=== PATIENT | female | born 1960 | race Caucasian/White ===

== ENCOUNTER 2020-12-26 02:23 | Outpatient (CLI) | payer BC, MEDICAID, SELFPAY ==
--- NOTE | 2020-12-26 15:35 | DI.MRI_ITS ---
Exam(s) MR LOWER JOINT RT WO EXAM: MR LOWER JOINT RT WO CLINICAL HISTORY: PAIN, INJURY,RT ACHILLES TENDINITIS, M76.61,S86.001A TECHNIQUE: Multiplanar multisequence MRI of the knee was performed. COMPARISON: CR XR RIGHT ANKLE COMPLETE from 05/21/2020 outside institution. FINDINGS: SKIN/SUBCUTANEOUS TISSUES: There is no evidence of skin ulcer nor subcutaneous tract. MARROW:There is no evidence of fracture or bone contusion. No marrow signal to suggest osteomyelitis . There are no ominous osseous lesions. There is prominent inferior calcaneal spur. There is some bone edema in the posterior superior calca neus. Also some increased signal on the inner aspect of the lateral malleolus. There is no evidence of osseous tarsal coalition. ARTICULATIONS: No joint effusions evident. No para-articular ganglions. No obvious degenerative changes in the ankle joint. Talar dome appears unremarkable. No osteochondr al defects. The subtalar joint appears unremarkable as does the sustentacular talus. Some degenerat teri changes noted in the calcaneocuboid joint including small subarticular cyst on the calcaneal side of this joint with mild surrounding intraosseous edema. No abnormal signal in the cuboid. Talonavi cular joint appears unremarkable. Main Lisfranc ligament appears intact (in the distal aspect of the field of view of this ankle study). No evidence of significant pes planus nor midfoot collapse. SINUS TARSI: Preserved fat signal. No evidence of sinus tarsi ganglion cyst Intact interosseous ligament. PLANTAR FASCIA: Unremarkable. No abnormal signal. No thickening or nodularity. ACHILLES TENDON: There is some tendinitis signal just above the insertional aspect and some increased intraosseous signal in the posterior calcaneus just anterior to the insertional aspect. RETROCALCANEAL BURSA: There is a moderate amount of fluid, consistent with retrocalcaneal/pre Paicines s bursitis. LIGAMENTS: Anterior and posterior tibiofibular ligaments appear intact. The anterior talofibular lig ament is intact. Posterior talofibular ligament is intact but there is degenerative subarticular cys t in the inner aspect of the lateral malleolus at this level. There is no abnormal signal in the med ial malleolus. Calcaneofibular ligament appears intact. On the medial aspect of the ankle deltoid ligament appears intact. MEDIAL TENDONS: tibialis posterior tendon is intact. no tear nor tenosynovitis. Flexor digitorum longus tendon is intact. No tear nor tenosynovitis. Flexor hallucis longus is intact. No tear nor significant tenosynovitis. LATERAL TENDONS: Peroneus longus and brevis tendons are intact. No tears or tenosynovitis. No displacement relative to the lateral malleolus. EXTENSOR TENDONS: No tears or tenosynovitis. IMPRESSION: 1. There is some tendinitis signal in the Achilles tendon with minimal thickening of the tendon. The re is also significant retrocalcaneal-pre Achilles bursitis. There is mild bone edema in the posteri or superior calcaneus. Consistent with an element of Bacilio syndrome. 2. Mild subcutaneous emphysema in the plantar heel fat pad but no abnormal fluid collection. The pl arthur fascia appears unremarkable. 3. No ligament nor tendon tears and no tenosynovitis. No pes planus. 4. Moderate degenerative change evident at the calcaneocuboid joint as described above. No obvious d egenerative changes at the subtalar joint. Subcortical edema in the inner aspect of the lateral mall eolus at the insertion site of the posterior talofibular ligament (which is not torn). 5. DATA REPOSITORY:
== END 2020-12-26 02:43 ==
PROVIDERS: PCP Internal Medicine; Visit Provider Student in an Organized Health Care Education/Training Program
DX: M76.61 Achilles tendinitis, right leg (principal); S86.001A Unspecified injury of right Achilles tendon, initial encounter
CPT/HCPCS: 73721

== ENCOUNTER 2024-12-12 18:32 | Outpatient (REF) | payer MEDICAID, SELFPAY ==
[2024-12-14 11:49] LABS: Lyme Ab w Rflx to Lyme Confirm Negative (Negative)
[2024-12-15 19:45] LABS: Anaplasma phagocytophilum Negative (Negative); B. miyamotoi PCR Negative (Negative); Babesia divergens/MO-1 Negative (Negative); Babesia duncani Negative (Negative); Babesia microti Negative (Negative); Ehrlichia chaffeensis Negative (Negative); Ehrlichia ewingii/canis Negative (Negative); Ehrlichia muris eauclairensis Negative (Negative)
== END 2024-12-12 18:33 | disposition home or self-care (01) ==
LOC: LBN 18:32
PROVIDERS: PCP Internal Medicine; Visit Provider Nurse Practitioner Family
DX: W57.XXXA Bitten or stung by nonvenomous insect and other nonvenomous arthropods, initial encounter (principal); Z77.29 Contact with and (suspected) exposure to other hazardous substances
CPT/HCPCS: 86790; 87798; 86618

== ENCOUNTER 2024-12-22 14:00 | Outpatient (REF) | payer MEDICAID, SELFPAY ==
[2024-12-22 15:28] LABS: Abs Immature Grans 0.02 10^3/uL (0.0-0.06); Absolute Basophil Count 0.05 10^3/uL (0.0-0.2); Absolute Eosinophil Count 0.18 10^3/uL (0.0-0.7); Absolute Lymphocyte Count 1.88 10^3/uL (1.2-3.4); Absolute Monocyte Count 0.32 10^3/uL (0.1-0.8); Absolute Neutrophil Count 2.73 10^3/uL (1.2-6.7); ESR < 1 mm/hr (0-30); Eosinophils % 3.5 %; HCT 39.2 % (36.0-46.0); HGB 13.1 g/dL (11.2-15.7); Immature Grans % 0.4 %; Lymphocytes % 36.3 %; MCH 31.1 pg (27.0-33.0); MCHC 33.4 % (32.0-36.0); MCV 93 fL (80-95); MPV 9.6 fL (8.0-11.0); Monocytes % 6.2 %; Neutrophils % 52.6 %; Platelet Count 279 10^3/uL (130-400); RBC 4.21 10^6/uL (3.93-5.22); RDW-SD 47.6 fL; WBC 5.18 10^3/uL (4.4-10.8)
[2024-12-22 16:14] LABS: ALT 29 U/L (14-59); AST 25 U/L (15-37); Albumin 4.1 g/dL (3.4-5.0); Alkaline Phosphatase 62 U/L (46-116); Anion Gap 10.4 mmol/L (3-11); BUN 20 mg/dL (7-18); Bilirubin, Total 0.3 mg/dL (0.2-1.0); CO2 23.6 mmol/L (21.0-32.0); CREATININE 0.9 mg/dL (0.55-1.02); Calcium 9.2 mg/dL (8.5-10.1); Chloride 107 mmol/L (98-107); Estimated GFR 71.39 (mL/min/1.73m2); Glucose 100 mg/dL (74-106); Potassium 4.2 mmol/L (3.5-5.1); Sodium 141 mmol/L (136-145); TSH 5.16 uIU/mL (0.36-3.74); Total Protein 6.8 g/dL (6.4-8.2); Vitamin D 25 Total 32 ng/mL (30-100)
[2024-12-22 16:58] LABS: C-Reactive Protein < 0.50 mg/dL (<or=0.5)
[2024-12-22 22:47] LABS: Rheumatoid Factor 10.2 IU/mL (<12.0)
[2024-12-25 13:45] LABS: ANA Interpretation Negative (Negative)
== END 2024-12-22 14:01 | disposition home or self-care (01) ==
LOC: NCHCN 14:00
PROVIDERS: PCP Internal Medicine; Visit Provider Nurse Practitioner Family
DX: E03.9 Hypothyroidism, unspecified (principal); D70.4 Cyclic neutropenia; M25.59 Pain in other specified joint; R53.82 Chronic fatigue, unspecified; Z76.89 Persons encountering health services in other specified circumstances
CPT/HCPCS: 80053; 82306; 85652; 84443; 85025; 86038; 86140; 86431

== ENCOUNTER 2025-02-23 08:47 | Outpatient (REF) | payer MEDICAID, SELFPAY ==
[2025-02-23 17:04] LABS: TSH 6.25 uIU/mL (0.36-3.74)
[2025-02-25 17:25] LABS: T3, Total 127 ng/dL (97-169)
== END 2025-02-23 08:48 | disposition home or self-care (01) ==
LOC: NCHCN 08:47
PROVIDERS: PCP Internal Medicine; Visit Provider Nurse Practitioner Family
DX: E03.9 Hypothyroidism, unspecified (principal)
CPT/HCPCS: 84439; 84443; 84480

== ENCOUNTER 2025-07-09 11:35 | Outpatient (REF) | payer MEDICAID, SELFPAY ==
[2025-07-09 16:30] LABS: Hemoglobin A1C 5.6 % (<5.7)
[2025-07-09 16:34] LABS: Cholesterol 246 mg/dL (<200); HDL Cholesterol 67 mg/dL (>40)
[2025-07-09 16:36] LABS: TSH 5.50 uIU/mL (0.55-4.78)
[2025-07-09 16:59] LABS: T4 6.2 ug/dL (4.5-10.9); Vitamin B12 299 pg/mL (211-911)
[2025-07-10 09:52] LABS: Hepatitis C Ab w Rflx HCV PCR Negative (Negative)
[2025-07-10 10:12] LABS: HIV-1/2 Ag & Ab Screen Negative (Negative)
== END 2025-07-09 11:36 | disposition home or self-care (01) ==
LOC: NCHCN 11:35
PROVIDERS: PCP Internal Medicine; Visit Provider Nurse Practitioner Family
DX: R20.0 Anesthesia of skin (principal); Z00.00 Encounter for general adult medical examination without abnormal findings; E03.9 Hypothyroidism, unspecified
CPT/HCPCS: 80061; 86803; 87389; 82607; 83036; 84436; 84439; 84443